=== PATIENT | female | born 1955 | race Caucasian/White ===

== ENCOUNTER 2017-03-19 17:44 | Emergency (ER) | payer BC ==
[~2017-03-19] VITALS: Ht 165.1 cm; Wt 77.1 kg
[~2017-03-19 17:44] MED LIST: LISINOPRIL 20MG20 MG PO; MELOXICAM15 MG PO
[2017-03-19] MEDS ORDERED: WELLBUTRIN XL300 MG PO (18:36)
[2017-03-19] MEDS ORDERED: AMOXICILLIN 50500 MG PO (18:37)
--- NOTE | 2017-03-19 18:55 | RADIOLOGY REPORT PS360 ---
ANKLE-RT-3 VIEWS Ordering Physician: MANUEL SALAMANCA APRN Patient Age: 61 years: Female HISTORY: TWISTED ANKLEtwisted ankle. Right ankle pain swelling. TECHNIQUE: 3 views right ankle FINDINGS There is a ovoid osseous density far inferior to the tip of the lateral malleolus. 8 mm x 3 mm.. I favor is a old calcification and corticated. Unlikely acute fracture. There is soft tissue swelling overlying the lateral malleolus. Ankle mortise otherwise intact unremarkable. Medial malleolus intact. IMPRESSION: Soft tissue swelling overlying the lateral malleolus inferior ankle. No convincing acute fracture. There is a osseous density below the tip of the lateral malleolus but I favor it is corticated, old osseous density from old trauma. Surprising superficial location as well.. Do not believe is acute fracture..
--- NOTE | 2017-03-19 19:25 | Urgent Treatment Center Report ---
History of Present Issue Date/Time Seen by Provider 03/19/17 191 Visit Reason Pt arrived:Wheelchair Presenting Problem:PT STATES SHE STEPPED WRONG AND TWISTED HER RIGHT ANKLE EARLIER TODAY. STATES APPLYING ICE TO ANKLE AND ELEVATING IT. STATES PAIN SHOOTS UP RIGHT LEG Location if Accident:Public Bulding Onset of symptoms date/time:03/19/17 or onset unknown for: Have you (or family members/close friends) recently traveled outside the [place]? N If Yes, where/when: Have you had exposure to infectious disease within the past month? TB? Other? Specify: Patient states that she was walking through grassy field when she slipped and stepped wrong and twisted her right ankle. States that she went home and placed ice on the area and elevated it. States that she has also been having pain that shoots up the ankle into her leg and she got worried so she came in to get checked ALLERGIES Coded Allergies: Sulfa (Sulfonamide Antibiotics) (03/19/17) Home Medications Reported Medications Meloxicam (Meloxicam 15MG) 15 MG PO QPM #30 LISINOPRIL (Lisinopril) 20 MG PO DAILY BUPROPION HCL (Wellbutrin XL 300MG) 300 MG PO DAILY Amoxicillin Trihydrate (Amoxicillin 500MG) 500 MG PO BID History Medical History General CAD? No Angina: No LA: No Hypertension? Yes Hyperlipidemia? No CHF? No DVT? No PE? No COPD? No Asthma? No Anemia? No GERD? Yes Gastric ulcers? No GI Bleed? No Hernia? No Thyroid Problems? No Hypothyroidism? No CVA? No Seizures? No Diabetes? No Renal Insuffiency? No UTI? No Stones? No GB Disease: No Nephritic Syndrome? No Asplenia? No Hepatitis? No Sickle Cell Disease? No Arthritis? No Migraines? No Cataracts? No Glaucoma? No MRSA? No HIV? No TB? No Anxiety? No Depression? Yes Cancer? No Immunization HX DT/Tetanus 5-10 Years Ago Surgical Hx Previous Surgery?Y HYSTERECTOMY CARPEL TUNNAL BOTH HANDS KNEE SUGERGIES X6 Social History Smoking Hx Smoker: Never Smoker Tobacco: No Alcohol Alcohol: No Review of Systems All Other Systems Reviewed and Negative Comment Pain and swelling in right ankle after twisting ankle earlier today while walking through a grassy field Physical Exam Vital Signs Vital Signs Date Time Temp Pulse Resp B/P Pulse O2 O2 Flow FiO2 Ox Delivery Rate 03/19 1833 97.7 73 18 124/64 98 General Appearance normal appearance, WD/WN, no apparent distress Respiratory Status Yes: trachea midline, chest symmetrical, non tender chest. No: respiratory distress. Cardiovascular normal exam, regular rate/rhythm, no peripheral edema, no gallop Extremities pain and swelling in right ankle and foot, no contusion, good pulses Neurologic alert, director of strategic programs II-XII nml as tested, normal exam, no motor/sensory deficits, oriented x 3 Comments Denies any other injuries, Medical Decision Making LABS/Meds/Orders Pt receiving controlled substance in ED? No XRAY/CT/US XRAY/CT/US XRAY ankle XR interpretation by reviewed by me Xray Results no fracture seen Departure Departure Time of Disposition 1919 Disposition DC Home or Self Care(routine) Clinical Impression Primary Impression: Ankle sprain Qualifiers: Encounter type: initial encounter Involved ligament of ankle: unspecified ligament Laterality: right Qualified Code: S93.401A - Sprain of unspecified ligament of right ankle, initial encounter Condition STABLE Referrals JOSEPH JUAREZ (Family): 2 Days-Call Office if no improvement or worsening of symptoms Erick Mcarthur MD: 2 Days-Call Office Follow up with Ortho if no improvement SARAY DIAZ, HIGINIO VIEIRA: 2 Days-Call Office Follow up with Orthopedic Patient Instructions How To Perform RICE (Rest, Ice, Compress, Elevate) Additional Instructions *weight bearing as tolerated *RICE, Rest the extremity, Ice 15-20 minutes 3-4 times daily, Compress- wear the mark wrap, Elevate the extremity when at rest *Mark wrap is for support and help control swelling, use it except in the shower. Be sure that is not to tight but not to loose either *Elevate as discussed as much as possible to help reduce swelling and pain *Ibuprofen 600-800mg every 6-8 hours as needed for pain an inflammation. If need something more can take Tylenol in between doses of Ibuprofen to help Immediately follow up for new or worsening of symptoms, or no noticeable improvement over the nex 3-5 days Discharge Counseling Counseled pt/family regarding diagnosis, test results, home care, follow up needs at 1924
[2017-03-19 19:34] VITALS: BP 124/64
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
--- OUTSIDE RECORDS SUMMARY | 2017-03-20 07:46 | External Medical Summary Rpt ---
Demographics Preferred Language Georgian Marital Status Unknown Jainism Affiliation Unknown Race Unknown Ethnic Group Unknown Author Author , Organization [employer] Address Unknown Phone Unavailable Purpose Continuity of Care Document - through 2016 Immunization No patient found.
--- OUTSIDE RECORDS SUMMARY | 2017-03-20 07:46 | External Medical Summary Rpt ---
Demographics Preferred Language Italian Marital Status Unknown Rastafari Affiliation Unknown Race Unknown Ethnic Group Unknown Author Author , Organization [employer] Address Unknown Phone Unavailable Purpose Continuity of Care Document - through 2016 Immunization No patient found.
--- OUTSIDE RECORDS SUMMARY | 2017-03-20 07:46 | External Medical Summary Rpt ---
Author Author [employer] Organization [employer] Address Unknown Phone Unavailable Purpose Continuity of Care Document - through 2016
--- OUTSIDE RECORDS SUMMARY | 2017-03-20 07:47 | External Medical Summary Rpt ---
Demographics Preferred Language Bengali Marital Status Unknown Zoroastrian Affiliation Unknown Race Unknown Ethnic Group Unknown Author Author , Organization [employer] Address Unknown Phone Unavailable Purpose Continuity of Care Document - through 2016 Immunization No patient found.
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
--- OUTSIDE RECORDS SUMMARY | 2017-03-20 07:47 | External Medical Summary Rpt ---
Demographics Preferred Language Swedish Marital Status Unknown Taoist Affiliation Unknown Race Unknown Ethnic Group Unknown Author Author , Organization [employer] Address Unknown Phone Unavailable Purpose Continuity of Care Document - through 2016 Immunization No patient found.
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
== END 2017-03-19 19:35 | disposition home or self-care (01) ==
LOC: UTC 17:44
DX: S93.401A Sprain of unspecified ligament of right ankle, initial encounter (principal)